=== PATIENT | male | born 1980 | race Caucasian/White ===

== ENCOUNTER 2019-08-29 09:43 | Emergency (ER) | payer MEDICAID ==
[~2019-08-29] VITALS: Ht 182.9 cm; Wt 86.2 kg
[2019-08-29 09:57] VITALS: BP 146/86
--- NOTE | 2019-08-29 10:10 | Emergency Room Report ---
History of Present Illness General Chief Complaint: Alcohol Intoxication Source: EMS Present Illness HPI Disclaimer: Please note that this report is being documented using DRAGON technology. This can lead to erroneous entry secondary to incorrect interpretation by the dictating instrument. HPI: 39-year-old male with a history of alcohol abuse presents for alcohol intoxication. Patient arrives by EMS from home. He states he called because he was feeling anxious after stopping drinking 2 hours ago. He has been drinking 750 mL of vodka daily for the past 2 months. Has completed prior inpatient detox and states he has outpatient counseling though has not contacted any of his outpatient resources. No prior history of withdrawal seizures or DTs. He is requesting Ativan. 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 EOMI. PERRLA. Sclera are injected bilaterally. Dry mucous membranes. Cardiovascular: RRR. S1 and S2 normal. No murmur appreciated Resp: Normal work of breathing. No cough, wheezing or crackles appreciated Abdomen: Abdomen is soft, nondistended. Nontender Skin: Intact. No abrasions, laceration or rash over the exposed skin MSK: Normal tone and bulk. Moving all extremities. No obvious deformity. Neuro: Awake and alert. Mentating appropriately. Very mild dysarthria. No tremors Medical Decision Making Diagnostic Impression: Primary Impression: Acute alcoholic intoxication ER Course This a 39-year-old male presenting for evaluation alcohol intoxication. Last drink 2 hours ago without history of DT or withdrawal seizures. He is requesting we [facility] in [place] where he was a previous inpatient. Patient appears mildly intoxicated but mentating appropriately. No evidence of acute withdrawal at this time. No tremors, heart rate slightly elevated though at the upper end of normal. He does appear dry. Will give IV fluids, thiamine, folate. Check screening labs. 1200: Informed by nursing staff that the patient left the emergency department while I was performing a procedure. I did not have a chance to discuss discharge plan however previously I discussed with him his labs though urine tox screen is still pending at the time. A cures report was performed showing the patient has been prescribed Xanax steadily over the past 2 years with a recent prescription on 08/16/2019 for 30-day supply and is 60 tablet quantity. Patient states that these medications were taken from him and he has not had Xanax in over 1.5 weeks. On my last evaluation the patient was clinically sober, drinking water at bedside and ambulated with a steady gait. We had called the rehab facility on his behalf however they had no beds available at this time however multiple other rehab facilities in the area were called and he was given information to follow-up by our charge nurse prior to his departure. Laboratory Tests Test 08/29/19 10:00 08/29/19 11:10 White Blood Count 7.2 K/UL (4.8-10.8) Red Blood Count 5.78 M/UL (4.70-6.10) Hemoglobin 17.6 G/DL (14.2-18.0) Hematocrit 54.2 % (42.0-52.0) H Mean Corpuscular Volume 94 FL (80-99) Mean Corpuscular Hemoglobin 30.5 PG (27.0-31.0) Mean Corpuscular Hemoglobin Concent 32.5 G/DL (32.0-36.0) Red Cell Distribution Width 13.2 % (11.6-14.8) Platelet Count 274 K/UL (150-450) Mean Platelet Volume 5.3 FL (6.5-10.1) L Neutrophils (%) (Auto) 62.5 % (45.0-75.0) Lymphocytes (%) (Auto) 28.5 % (20.0-45.0) Monocytes (%) (Auto) 7.2 % (1.0-10.0) Eosinophils (%) (Auto) 0.0 % (0.0-3.0) Basophils (%) (Auto) 1.8 % (0.0-2.0) Sodium Level 139 MMOL/L (136-145) Potassium Level 3.9 MMOL/L (3.5-5.1) Chloride Level 97 MMOL/L (98-107) L Carbon Dioxide Level 21 MMOL/L (21-32) Anion Gap 21 mmol/L (5-15) H Blood Urea Nitrogen 10 mg/dL (7-18) Creatinine 1.1 MG/DL (0.55-1.30) Estimated Glomerular Filtration Rate > 60 mL/min (>60) Glucose Level 92 MG/DL (74-106) Calcium Level 8.0 MG/DL (8.5-10.1) L Serum Alcohol 394 mg/dL Urine Opiates Screen Negative (NEGATIVE) Urine Barbiturates Screen Negative (NEGATIVE) Phencyclidine (PCP) Screen Negative (NEGATIVE) Urine Amphetamines Screen Negative (NEGATIVE) Urine Benzodiazepines Screen Positive (NEGATIVE) H Urine Cocaine Screen Negative (NEGATIVE) Urine Marijuana (THC) Screen Negative (NEGATIVE) Last Vital Signs Date Time Temp Pulse Resp B/P (MAP) Pulse Ox O2 Delivery O2 Flow Rate FiO2 08/29/19 09:57 100 15 Room Air 08/29/19 09:57 98.8 146/86 98 Disposition: ELOPED Condition: Stable Jim Murray MD Aug 29, 2019 10:10
[2019-08-29 10:29] LABS: ANION GAP 21 mmol/L (5-15); BLOOD UREA NITROGEN 10 mg/dL (7-18); CARBON DIOXIDE 21 MMOL/L (21-32); CHLORIDE 97 MMOL/L (98-107); CREATININE 1.1 MG/DL (0.55-1.30); POTASSIUM 3.9 MMOL/L (3.5-5.1); SODIUM 139 MMOL/L (136-145)
[2019-08-29] MEDS ORDERED: Thiamine 100mg tab ORAL SCH (10:30)
[2019-08-29] MEDS ORDERED: LORazepam 1mg tab ORAL ONE (10:45)
--- NOTE | 2019-08-29 10:45 | NUR ---
ED Nurse Note:pt. was BIBA from home with alcohol intoxication "bottle of vodka this morning", pt. is A/Ox4, ambulatory with unsteady gait, VSS, no visible tremors , blood sent to labs
[2019-08-29 10:53] LABS: BASOPHILS % (AUTO) 1.8 % (0.0-2.0); HEMATOCRIT 54.2 % (42.0-52.0); HEMOGLOBIN 17.6 G/DL (14.2-18.0); LYMPHOCYTES % (AUTO) 28.5 % (20.0-45.0); MEAN CORPUSCULAR VOLUME 94 FL (80-99); MONOCYTES % (AUTO) 7.2 % (1.0-10.0); NEUTROPHILS % (AUTO) 62.5 % (45.0-75.0); PLATELET COUNT 274 K/UL (150-450); RED BLOOD COUNT 5.78 M/UL (4.70-6.10); RED CELL DISTRIBUTION WIDTH 13.2 % (11.6-14.8); WHITE BLOOD COUNT 7.2 K/UL (4.8-10.8)
--- NOTE | 2019-08-29 11:09 | NUR ---
ED Nurse Note: urine sample sent.
[2019-08-29 11:42] VITALS: BP 146/86
--- NOTE | 2019-08-29 11:42 | NUR ---
AMA:pt. insisted on leaving ER and pulled IV out, no bleeding, he was given option to stay longer to sober better but he refused and signed AMA, pt. is A/Ox4 ambulated out with steady gait and all personal belongings SEE AMA FORM.
== END 2019-08-29 11:45 | disposition left against medical advice (07) ==
LOC: EDBD 09:43 → EDSEX 09:43 → EMR 10:05
DX: F10.129 Alcohol abuse with intoxication, unspecified (principal)
CPT/HCPCS: 36415; 80048; 80307; 85025; G0480; Z7502; 99284